=== PATIENT | female | born 1985 | race Caucasian/White ===

== ENCOUNTER 2016-09-26 17:18 | Emergency (ER) | payer OTHER ==
[~2016-09-26] VITALS: Ht 165.1 cm; Wt 90.0 kg
[~2016-09-26 17:18] MED LIST: LABE200T3 PO; PREN1TAB17 PO
[2016-09-26 17:27] VITALS: Ht 165.1 cm; Wt 90.0 kg
[2016-09-26] MEDS ORDERED: IBUP-1542 PO (18:25)
[2016-09-26] MEDS ORDERED: ACET1TAB40 PO (18:25)
[2016-09-26] MEDS ORDERED: NPH10OT RIGHT EAR (18:25)
[2016-09-26] MEDS ORDERED: IBUPROFEN 600 MG TAB PO ONE (18:30)
--- NOTE | 2016-09-26 18:31 | ERD ---
ER Documentation Chief Complaint Date/Time DATE: 09/26/16 TIME: 18:28 Chief Complaint 09/29 r. ear pain x 4 days HPI This 31-year-old fell presents with right ear pain for last 4 days. She she has been swimming. She is slight amount of discharge. There is no fevers, vomiting, shortness breath or chest pain. ROS All systems reviewed and are negative except as per history of present illness. Medications Home Meds Active Scripts Ibuprofen* (Motrin*) 600 Mg Tab, 600 MG PO Q6, #20 TAB Prov:ABHINAV NIELSEN MD 09/26/16 Acetaminophen with Codeine (Acetaminophen-Cod #3 Tablet) 1 Each Tablet, 1 TAB PO Q6H Y for PAIN, #7 TAB Prov:ABHINAV NIELSEN MD 09/26/16 Neomycin/Polymyxin/Hydrocort* (Cortisporin* Otic) 10 Ml Susp, 4 DROP RIGHT EAR QID for 7 Days, EA Prov:ABHINAV NIELSEN MD 09/26/16 Reported Medications Labetalol Hcl (Normodyne) 200 Mg Tablet, 200 MG PO BID, TAB 03/15/16 Vit-Iron Fumarate-FA ( Tablet) 1 Each Tablet, 1 TAB PO DAILY, TAB 12/21/15 Allergies Allergies: Coded Allergies: No Known Drug Allergies (Verified Allergy, Unknown, 03/08/16) PMhx/Soc History of Surgery: No Anesthesia Reaction: No Hx Neurological Disorder: No Hx Respiratory Disorders: No Hx Cardiac Disorders: Yes (high bp) Hx Psychiatric Problems: No Hx Alcohol Use: No Hx Substance Use: No Hx Tobacco Use: No Physical Exam Physical Exam Const: [] Alert, [id number]. Head: Atraumatic Eyes: Normal Conjunctiva ENT: Normal External Ears, Nose and Mouth. Pain RANGE of motion of the right external ear. There is decrease in diameter the canal is exhibiting slight swelling. TM appears normal. There is no mastoid tenderness or external erythema or warmth. Neck: Full range of motion..~ No meningismus. Resp: Clear to auscultation bilaterally Cardio: Regular rate and rhythm, no murmurs Abd: Soft, non tender, non distended. Normal bowel sounds Skin: No petechiae or rashes Back: No midline or flank tenderness Ext: No cyanosis, or edema Neur: Awake and alert Psych: Normal Mood and Affect Procedures/MDM Patient is right-sided otitis externa. She'll treated with Cortisporin and ibuprofen. No evidence of mastoiditis, cellulitis, possibly presenting complaints.The patient was stable with no new complaints during the ER course. Clinically, there is no current evidence to suggest meningitis, sepsis, acute abdomen, pneumonia, acute coronary syndrome, pulmonary embolism, or any other emergent condition appearing to require further evaluation or hospitalization. The patient should certainly return for any new or worsening symptoms per the aftercare instructions. They should otherwise follow-up with her primary care doctor for reevaluation this week. Departure Diagnosis: Primary Impression: Right ear pain Condition: Stable Patient Instructions: External Ear Infection (Adult) Additional Instructions: Recheck for new or worsening symptoms or primary care doctor. ABHINAV NIELSEN MD Sep 26, 2016 18:31
== END 2016-09-26 18:56 | disposition home or self-care (01) ==
LOC: FTE 17:18
DX: H92.01 Otalgia, right ear (principal)
CPT/HCPCS: Z7502; Z7610; 99283